=== PATIENT | female | born 1950 | race Caucasian/White ===

== ENCOUNTER → 2018-01-02 10:50 | Outpatient (CLI) | payer MEDICARE, OTHER, SELFPAY ==
[2018-01-02 12:27] LABS: Hematocrit 43.3 % (37-47); Hemoglobin 13.9 g/dl (12.0-15.0); Mean Corp Hgb Conc 32.1 g/gl (32-36); Mean Corpuscular Hgb 29.3 pg (27.0-32.0); Mean Corpuscular Volume 91.2 fL (81-99); Mean Platelet Vol. 11.1 fl (6.2-12.0); Platelet Count 313 K/mm3 (150-450); RBC Distribution Width CV 14.2 % (11.6-14.6); Red Blood Count 4.75 M/mm3 (4.2-5.4); White Blood Count 6.3 K/mm3 (4.4-11.0)
[2018-01-02 12:33] LABS: Scan Indicated on CBC? Y/N NO
[2018-01-02 12:39] LABS: Vitamin D,25 Hydroxy 33.4 ng/mL (29.95-100.01)
[2018-01-02 13:02] LABS: AST(SGOT) 16 U/L (15-37); Alanine Aminotransfer ALT/SGPT 25 U/L (13-56); Albumin, Serum 3.6 g/dL (3.2-5.0); Alkaline Phosphatase 148 U/L (45-117); Anion Gap 6 (5-15); BUN 15 mg/dL (7-18); BUN/Creat Ratio 17.3 RATIO (10-20); Calcium,Total 8.8 mg/dL (8.5-10.1); Chloride 105 mmol/L (98-107); Cholesterol 273 mg/dL (200); Creatinine, Serum 0.87 mg/dL (0.55-1.02); EST Glomerular Filtration Rate 69 mL/min (>60); Est Glom Filt Rate - Afr Amer 83 mL/min (>60); Globulin 3.6 g/dL (2.2-4.2); Glucose 89 mg/dL (74-106); High Density Lipoprotein 39 mg/dL; Protein, Total 7.2 g/dL (6.4-8.2); Sodium Level 141 mmol/L (136-145); Thyroid Stim Hormone (TSH) 2.55 uIU/mL (0.358-3.74); Triglycerides 266 mg/dL; Very Low Density Lipoprotein 53 mg/dL (5-40)
== END ==
PROVIDERS: Family Provider Family Medicine; PCP Family Medicine; Visit Provider Family Medicine
DX: E55.9 Vitamin D deficiency, unspecified (principal); Z13.220 Encounter for screening for lipoid disorders
CPT/HCPCS: 36415; 80053; 80061; 82306; 84443; 85027

== ENCOUNTER → 2018-01-26 12:30 | Outpatient (CLI) | payer MEDICARE, OTHER, SELFPAY ==
--- NOTE | 2018-01-26 12:33 | BI_ITS ---
MAMMOGRAPHY - BILATERAL SCREENING REASON FOR EXAM: Female, 68 years old. Routine annual screening examination. PERTINENT HISTORY: Non-contributory. TECHNIQUE: Digital bilateral breast clint (3D mammographic acquisition) in the CC and MLO projections. 2-D mediolateral oblique (MLO) and craniocaudad (CC) views of both breasts were obtained. CAD: Full Field Digital Mammography with Computer Added Detection was performed. COMPARISON: Comparison is made with prior abdomen examination dated May 04, 2015. FINDINGS: Breast Composition: There are scattered areas of fibroglandular density. There are no dominant masses or suspicious calcifications. Stable benign-appearing bilateral axillary lymph nodes. No other significant abnormalities are identified. There has been no significant change since the prior study. BI/SCREENING MAMM (CAD), BILAT IMPRESSION: Stable bilateral screening mammogram. Yearly follow-up mammogram recommended. (A) ASSESSMENT CATEGORY: BIRADS Category 2: Benign. A letter regarding these results will be sent to the patient by the facility within 30 days. Approximately 10% of breast cancers are not detected by mammography. A normal mammogram should not delay biopsy of a clinically suspicious abnormality. [id number] Electronically Signed: Eulalio Rodríguez MD at 14:18 EDT Tel [phone], Service support ,
== END ==
PROVIDERS: Family Provider Family Medicine; PCP Family Medicine; Visit Provider Family Medicine
DX: Z00.00 Encounter for general adult medical examination without abnormal findings (principal); Z12.31 Encounter for screening mammogram for malignant neoplasm of breast
CPT/HCPCS: 77063; 77067

== ENCOUNTER 2020-08-29 08:44 | Day surgery (SDC) | payer MEDICARE, OTHER, SELFPAY ==
[2020-08-14 12:50] VITALS: BMI 30.9
[2020-08-29 09:19] VITALS: BP 136/76; PULSE 82; RESP 16; TEMP 36.3; O2SAT 97; BMI 32.1
[2020-08-29] MEDS: Lactated Ringers 1,000 ML 100 ML IV (09:31)
--- NOTE | 2020-08-29 10:23 | SUR.PREOP ---
tap water enema given x2 per dr hernández request. pt continues with cloudy water with brown flecks in her stool.
--- NOTE | 2020-08-29 10:25 | HP.PCM_ITS ---
Problem List (1) Screening for malignant neoplasm of intestine Status: Acute History and Physical Date of Admission: 08/29/20 Intake Visit Reasons: Gall Bladder Issues Material Distributor Required: No Is patient in pain?: No Allergies morphine Allergy (Unknown, Verified 08/14/20 12:51) unknown pregabalin [From Lyrica] Allergy (Unknown, Verified 08/14/20 12:51) unknown acetaminophen [From Percocet] Adverse Reaction (Verified 01/24/17 20:37) Nausea/Vom/Diarrhea oxycodone [From Percocet] Adverse Reaction (Verified 01/24/17 20:37) Nausea/Vom/Diarrhea propoxyphene [From Darvon] Adverse Reaction (Verified 01/24/17 20:37) Unknown Medications Amitriptyline HCl 10 mg PO BID 01/24/17 [History Confirmed 08/14/20] Cholecalciferol (Vitamin D3) [Vitamin D3] 2,000 unit PO DAILY 01/24/17 [History Confirmed 08/14/20] Tramadol HCl [Ultram] 50 mg PO QHS 01/24/17 [History Confirmed 01/24/17] duloxetine 60 mg capsule,delayed release 60 mg PO DAILY cap 08/14/20 [History Confirmed 08/14/20] pravastatin 40 mg tablet 40 mg PO DAILY tablet 08/14/20 [History Confirmed 08/14/20] PFS Medical History Arthritis (Acute) History of back problems (Acute) GERD (gastroesophageal reflux disease) (Acute) Fibromyalgia (Acute) RUQ abdominal pain (Acute) Epigastric pain (Acute) Osteoarthritis (Acute) Meniere disease (Acute) Hx of squamous cell carcinoma (Acute) Numbness and tingling (Acute) Surgical History Hx of colonoscopy (Acute) Hx of total knee replacement (Acute) History of mandibular surgery (Acute) Hx of basal cell carcinoma excision (Acute) Hx of bilateral cataract extraction (Acute) Family History Sister Uterine cancer Diabetes Arthritis Social History (Updated 08/14/20 @ 13:[address] Brant Graves MD) Smoking Status: Never smoker second hand exposure: No alcohol intake: never substance use type: does not use caffeine: Yes what type of physical activity do you participate in: none frequency: does not exercise HPI HPI HPI: YVON MCKEON, is a 70 F who presents to the office today for surgical consultation regarding epigastric pain with radiation to her right upper quad rant. She is referred by and a written copy my surgical consult recommendations will be returned to her. The patient over the past several months has been having episodes of epigastric right upper quadrant pain. To help evaluate this on June 16, 2020 at [facility] she had a gallbladder ultrasound. This showed numerous gallstones. There was felt to be possibly a lesion in the liver. So subsequently July 03 she had an MRI. This showed focal fatty sparing. Diffuse fatty infiltration of the liver. Cholelithiasis. As of May her white blood cell count was 6.8 with a hemoglobin 14.8 hematocrit 44.1 platelet count 275,000 with a normal differential. Her BUN was 13 creatinine 0.9. Liver function tests were normal with a albumin of 3.7 and total bilirubin 0.4 and ALT of 52. She has had some nausea with the episodes of pain. There is been no particular food intolerance. No jaundice. No history of peptic ulcer disease. Her most recent colonoscopy was 10 years ago. She states she is due for further screening. No history of DVT. She states that she did not have exposure to COVID-19. HPI HPI HPI: YVON MCKEON, is a 70 F who presents to the office today for ROS General General: No weight change, appetite, fatigue, colon cancer, breast cancer or weakness HEENT HEENT: Yes eye surgery; no difficulty swallowing, eye injury, swollen glands or hoarseness Endo Endocrine: No thyroid disease, diabetes mellitus, thyroid cancer, Hair loss, heat intolerance or cold intolerance Skin Skin: No rash or changing moles Musc Musculoskeletal: Yes back problems and arthritis; no rheumatoid arthritis, gout or joint pain Cardio Cardiovascular: No murmur, pacemaker, heart disease, atrial fibrillation, high blood pressure, heart attack, heart stent, palpitations, shortness of breat with exertion or chest pain Psych Psychiatric: No depression, anxiety or hearing voices Resp Respiratory: No shortness of breath, No sleep apnea, No cough, No COPD, No asthma, No emphysema, No wheezing Gastro Gastrointestinal: Yes abdominal pain, No nausea or vomiting, No diarrhea, No constipation, No blood in stool, Yes acid reflux, No hemorrhoids, No ulcers, Yes gallbladder problem, No black,tarry stools Braxton Hematologic: No blood thinners, No blood disorders, No bleeding, No anemia, No blood clots Neuro Neurologic: Yes numbness, Yes tingling, No weakness Exam Const General: cooperative, healthy appearing, comfortable, no acute distress Nutritional Appearance: overweight Orientation: alert, awake [facility] Head: normal to inspection Eyes General: appearance normal, both eyes and all related structures Chest Other: Minimal discomfort to percussion of the back Resp Effort & Inspection: normal respiratory effort Auscultation: clear to auscultation bilaterally Cardio Rate: regular rate Rhythm: regular rhythm Heart Sounds: no murmurs GI Palpation: soft, no hepatosplenomegaly Other: Well-healed transverse infraumbilical incision from tubal ligation Musc Cervical Spine: normal cervical lordosis Skin General: no rashes or lesions noted Neuro Cognition: normal cognition Extrem General: no calf tenderness Psych Affect: normal affect Assessment & Plan Problems 1. Screening for malignant neoplasm of intestine Z12.10 2. Calculus of gallbladder with chronic cholecystitis without obstruction K80.10 Plan 70-year-old female with episodes of epigastric red quadrant pain with radiation to back consistent with chronic cholecystitis cholelithiasis. I have discussed with her technique benefit risk complication alternatives of a laparoscopic cholecystectomy with selective cholangiography. She has had an opportunity to ask no questions answered and we will schedule procedure at her discretion. She is due for screening colonoscopy. It would seem reasonable to pursue this prior to the cholecystectomy in case of positive finding were identified. I propose for her a colonoscopy with possible biopsy or polypectomy as indicated. She also is aware of technique benefit risk complications alternatives. We will schedule and expedite her care. I appreciate the opportunity of assisting with her surgical management Copy: Dr. Nick Graves M.D., F.A.C.S. Coding Level of Care Code 74075 Diagnoses Screening for malignant neoplasm of intestine Z12.10 Calculus of gallbladder with chronic cholecystitis without obstruction K80.10 ??Cholelithiasis location: gallbladder ??Biliary obstruction: without biliary obstruction I have re-examined the patient. There are no clinical changes since date of exam.
[2020-08-29 10:45] VITALS: BP 119/65; BP 136/76; PULSE 72; RESP 16; TEMP 36.1; O2SAT 93
[2020-08-29 10:50] VITALS: BP 121/70; BP 136/76; PULSE 70; RESP 16; O2SAT 93
--- NOTE | 2020-08-29 10:50 | OP.COLON_ITS ---
Patient Name: Verna Mari Procedure Date: 08/29/2020 10:24 AM Date of : 1950 Age: 70 Procedure: Colonoscopy Indications: Screening for colorectal malignant neoplasm Providers: Brant Graves MD Referring MD: Angela Romero Md Medicines: See the Anesthesia note for documentation of the administered medications Patient Profile: Last Colonoscopy: June 2009. Complications: No immediate complications. Procedure: Pre-Anesthesia Assessment: - Prior to the procedure, a History and Physical was performed, and patient medications and allergies were reviewed. The patient's tolerance of previous anesthesia was also reviewed. The risks and benefits of the procedure and the sedation options and risks were discussed with the patient. All questions were answered, and informed consent was obtained. Prior Anticoagulants: The patient has taken no previous anticoagulant or antiplatelet agents. ASA Grade Assessment: II - A patient with mild systemic disease. After reviewing the risks and benefits, the patient was deemed in satisfactory condition to undergo the procedure. After I obtained informed consent, the scope was passed under direct vision. Throughout the procedure, the patient's blood pressure, pulse, and oxygen saturations were monitored continuously. The Colonoscope was introduced through the anus and advanced to the splenic flexure. The colonoscopy was performed with difficulty due to unsatisfactory bowel prep. The patient tolerated the procedure well. The quality of the bowel preparation was unsatisfactory. Scope In: 10:36:31 AM Scope Out: 10:40:25 AM Total Procedure Duration Time 0 hours 3 minutes 54 seconds Findings: A large amount of stool was found in the entire colon, precluding visualization. Impression: - Preparation of the colon was unsatisfactory. - Stool in the entire examined colon. - No specimens collected. Recommendation: - Discharge patient to home. - Resume previous diet. - Continue present medications. - Repeat colonoscopy in 2 days for screening purposes. - Telephone my office to schedule appointment in 1 day. Procedure Code(s): --- Professional --- 83117, Sigmoidoscopy, flexible; diagnostic, including collection of specimen(s) by brushing or washing, when performed (separate procedure) Diagnosis Code(s): --- Professional --- Z12.11, Encounter for screening for malignant neoplasm of colon CPT copyright 2017 [employer]. All rights reserved. The codes documented in this report are preliminary and upon helper maintenance cleaning review may be revised to meet current compliance requirements. Brant Graves MD 08/29/2020 10:50:44 AM This report has been signed electronically. Number of Addenda: 0 Note Initiated On: 08/29/2020 10:24 AM
--- NOTE | 2020-08-29 10:51 | OP.CCLET_ITS ---
08/29/2020 Angela Romero Md Re : Colonoscopy procedure for Verna Mari Latoshar Nick This procedure was performed on Saturday, August 29, 2020. My impressions and recommendations are as follows: Impressions : - Preparation of the colon was unsatisfactory. - Stool in the entire examined colon. - No specimens collected. Recommendations : - Discharge patient to home. - Resume previous diet. - Continue present medications. - Repeat colonoscopy in 2 days for screening purposes. - Telephone my office to schedule appointment in 1 day. My findings are described in the full procedure note, which is enclosed. If I can be of further assistance, please feel free to contact me at Doctor phone number(s): Work: . Sincerely, Brant Graves MD 08/29/2020 10:50:44 AM This report has been signed electronically.
[2020-08-29 10:55] VITALS: BP 125/73; BP 136/76; PULSE 71; RESP 16; O2SAT 93
[2020-08-29 11:00] VITALS: BP 129/75; BP 136/76; PULSE 70; RESP 16; TEMP 36.3; O2SAT 96
[2020-08-29 11:25] VITALS: BP 136/76
== END 2020-08-29 11:30 | disposition home or self-care (01) ==
LOC: EN 08:45 → AC 08:46
PROVIDERS: PCP Student in an Organized Health Care Education/Training Program; Referring Provider Student in an Organized Health Care Education/Training Program; Visit Provider Surgery
PROC: 0DJD8ZZ Inspection of Lower Intestinal Tract, Via Natural or Artificial Opening Endoscopic (ICD-10-PCS; CPT 45378; principal; 2020-08-29 10:10)
DX: Z12.11 Encounter for screening for malignant neoplasm of colon (principal); R10.13 Epigastric pain; M79.7 Fibromyalgia; M19.90 Unspecified osteoarthritis, unspecified site; Z79.899 Other long term (current) drug therapy
CPT/HCPCS: 45378; 87426; C9803; J7120; J2405

== ENCOUNTER 2020-08-31 09:45 | Day surgery (SDC) | payer MEDICARE, OTHER, SELFPAY ==
[2020-08-31] VITALS (7 sets, daily range): BP systolic 123–143; BP diastolic 70–95; PULSE 66–80; RESP 16–18; TEMP 35.8–36.1; O2SAT 94–100; BMI 31.7
[2020-08-31] MEDS: Lactated Ringers 1,000 ML 100 ML IV (10:23)
--- NOTE | 2020-08-31 10:43 | PCM.HP.BLA ---
Problem List (1) Screening for malignant neoplasm of intestine Status: Acute History and Physical Date of Admission: 08/31/20 Problem List (1) Screening for malignant neoplasm of intestine Status: Acute History and Physical Date of Admission: 08/29/20 Intake Visit Reasons: Gall Bladder Issues Suction Roller Required: No Is patient in pain?: No Allergies morphine Allergy (Unknown, Verified 08/14/20 12:51) unknown pregabalin [From Lyrica] Allergy (Unknown, Verified 08/14/20 12:51) unknown acetaminophen [From Percocet] Adverse Reaction (Verified 01/24/17 20:37) Nausea/Vom/Diarrhea oxycodone [From Percocet] Adverse Reaction (Verified 01/24/17 20:37) Nausea/Vom/Diarrhea propoxyphene [From Darvon] Adverse Reaction (Verified 01/24/17 20:37) Unknown Medications Amitriptyline HCl 10 mg PO BID 01/24/17 [History Confirmed 08/14/20] Cholecalciferol (Vitamin D3) [Vitamin D3] 2,000 unit PO DAILY 01/24/17 [History Confirmed 08/14/20] Tramadol HCl [Ultram] 50 mg PO QHS 01/24/17 [History Confirmed 01/24/17] duloxetine 60 mg capsule,delayed release 60 mg PO DAILY cap 08/14/20 [History Confirmed 08/14/20] pravastatin 40 mg tablet 40 mg PO DAILY tablet 08/14/20 [History Confirmed 08/14/20] PFSH Medical History Arthritis (Acute) History of back problems (Acute) GERD (gastroesophageal reflux disease) (Acute) Fibromyalgia (Acute) RUQ abdominal pain (Acute) Epigastric pain (Acute) Osteoarthritis (Acute) Meniere disease (Acute) Hx of squamous cell carcinoma (Acute) Numbness and tingling (Acute) Surgical History Hx of colonoscopy (Acute) Hx of total knee replacement (Acute) History of mandibular surgery (Acute) Hx of basal cell carcinoma excision (Acute) Hx of bilateral cataract extraction (Acute) Family History Sister Uterine cancer Diabetes Arthritis Social History (Updated 08/14/20 @ 13:[address] Brant Graves MD) Smoking Status: Never smoker second hand exposure: No alcohol intake: never substance use type: does not use caffeine: Yes what type of physical activity do you participate in: none frequency: does not exercise HPI HPI HPI: YVON MCKEON, is a 70 F who presents to the office today for surgical consultation regarding epigastric pain with radiation to her right upper quadrant. She is referred by and a written copy my surgical consult recommendations will be returned to her. The patient over the past several months has been having episodes of epigastric right upper quadrant pain. To help evaluate this on June 16, 2020 at [facility] she had a gallbladder ultrasound. This showed numerous gallstones. There was felt to be possibly a lesion in the liver. So subsequently July 03 she had an MRI. This showed focal fatty sparing. Diffuse fatty infiltration of the liver. Cholelithiasis. As of May her white blood cell count was 6.8 with a hemoglobin 14.8 hematocrit 44.1 platelet count 275,000 with a normal differential. Her BUN was 13 creatinine 0.9. Liver function tests were normal with a albumin of 3.7 and total bilirubin 0.4 and ALT of 52. She has had some nausea with the episodes of pain. There is been no particular food intolerance. No jaundice. No history of peptic ulcer disease. Her most recent colonoscopy was 10 years ago. She states she is due for further screening. No history of DVT. She states that she did not have exposure to COVID-19. HPI HPI HPI: YVON MCKEON, is a 70 F who presents to the office today for ROS General General: No weight change, appetite, fatigue, colon cancer, breast cancer or weakness HEENT HEENT: Yes eye surgery; no difficulty swallowing, eye injury, swollen glands or hoarseness Endo Endocrine: No thyroid disease, diabetes mellitus, thyroid cancer, Hair loss, heat intolerance or cold intolerance Skin Skin: No rash or changing moles Musc Musculoskeletal: Yes back problems and arthritis; no rheumatoid arthritis, gout or joint pain Cardio Cardiovascular: No murmur, pacemaker, heart disease, atrial fibrillation, high blood pressure, heart attack, heart stent, palpitations, shortness of breat with exertion or chest pain Psych Psychiatric: No depression, anxiety or hearing voices Resp Respiratory: No shortness of breath, No sleep apnea, No cough, No COPD, No asthma, No emphysema, No wheezing Gastro Gastrointestinal: Yes abdominal pain, No nausea or vomiting, No diarrhea, No constipation, No blood in stool, Yes acid reflux, No hemorrhoids, No ulcers, Yes gallbladder problem, No black,tarry stools Braxton Hematologic: No blood thinners, No blood disorders, No bleeding, No anemia, No blood clots Neuro Neurologic: Yes numbness, Yes tingling, No weakness Exam Const General: cooperative, healthy appearing, comfortable, no acute distress Nutritional Appearance: overweight Orientation: alert, awake [facility] Head: normal to inspection Eyes General: appearance normal, both eyes and all related structures Chest Other: Minimal discomfort to percussion of the back Resp Effort & Inspection: normal respiratory effort Auscultation: clear to auscultation bilaterally Cardio Rate: regular rate Rhythm: regular rhythm Heart Sounds: no murmurs GI Palpation: soft, no hepatosplenomegaly Other: Well-healed transverse infraumbilical incision from tubal ligation Musc Cervical Spine: normal cervical lordosis Skin General: no rashes or lesions noted Neuro Cognition: normal cognition Extrem General: no calf tenderness Psych Affect: normal affect Assessment & Plan Problems 1. Screening for malignant neoplasm of intestine Z12.10 2. Calculus of gallbladder with chronic cholecystitis without obstruction K80.10 Plan 70-year-old female with episodes of epigastric red quadrant pain with radiation to back consistent with chronic cholecystitis cholelithiasis. I have discussed with her technique benefit risk complication alternatives of a laparoscopic cholecystectomy with selective cholangiography. She has had an opportunity to ask no questions answered and we will schedule procedure at her discretion. She is due for screening colonoscopy. It would seem reasonable to pursue this prior to the cholecystectomy in case of positive finding were identified. I propose for her a colonoscopy with possible biopsy or polypectomy as indicated. She also is aware of technique benefit risk complications alternatives. We will schedule and expedite her care. I appreciate the opportunity of assisting with her surgical management Copy: Dr. Nick Graves M.D., F.A.C.S. Coding Level of Care Code 41156 Diagnoses Screening for malignant neoplasm of intestine Z12.10 Calculus of gallbladder with chronic cholecystitis without obstruction K80.10 ??Cholelithiasis location: gallbladder ??Biliary obstruction: without biliary obstruction I have re-examined the patient. There are no clinical changes since date of exam. She returns today. She is redone her bowel prep. It was in adequate 2 days ago. We will reattempt a colonoscopy with possible biopsy or polypectomy for her. She has had an opportunity to ask and have questions answered she is comfortable with that and would like to proceed as noted. Brant Graves M.D., F.A.C.S. Procedure Criteria Procedure Type: Elective COVID Risk Discussion: The surgeon/proceduralist and patient have discussed in detail the risk of exposure to and/or potential harm posed by the COVID-19 virus with having a surgery/procedure at this time versus the risk of delaying the surgery/procedure. It is not possible to know either the risk of delaying the surgery or procedure or chance of getting an infection with perfect accuracy, but a joint decision was made between the patient and the surgeon/proceduralist to proceed at this time with the scheduled surgery/procedure as indicated on the consent form.
--- NOTE | 2020-08-31 11:00 | COLBX_PTH ---
PATIENT: YVON MCKEON LOC: EN U#:[id number] AGE/SX: 70/F ROOM: RE08/31/[address]: Dr. Brant Graves MD : 1950 BED: DIS: 08/31/2020 SPEC #: [id number] RECD: 08/31/20 11:38 STATUS: LETY CURRYJill #: [id number] AURELIO: 08/31/20 11:[address]: Brant Graves DEPT: SURGICAL PATHOLOGY RECD BY: Siomara Parikh ENTERED: 08/31/20 12:19 SP TYPE: COLON BX RAVI DR: Dr. Angela Romero MD Tissues: A - Transverse colon B - Rectum, NOS Procedures: Surgery Specimen Level IV HEADER OPERATION: Colonoscopy (MAC) PRE-OP DIAGNOSIS: Screening TISSUE SUBMITTED: A - Mid transverse polyp, B - Proximal rectum polyp MICROSCOPIC DIAGNOSIS A. Mid transverse colon polyp, biopsy: Fragments of tubular adenoma. B. Proximal rectal polyp, biopsy: Polypoid fragment of benign colonic mucosa. See comment. AM:naseem 09/01/2020 COMMENT B. Neither hyperplastic nor adenomatous change is identified. MICROSCOPIC DESCRIPTION Slides are reviewed. GROSS DESCRIPTION A - Received in fixative is one container labeled with the patient's name and designated mid transverse colon polyp. The specimen consists of two irregular fragments of light flores soft tissue that in aggregate measure 0.8 x 0.5 x 0.2 cm. The specimen is totally submitted in one cassette. B - Received in fixative is one container labeled with the patient's name and designated proximal rectum polyp. The specimen consists of one irregular fragment of light flores soft tissue that measures 0.6 x 0.2 x 0.1 cm. The specimen is totally submitted in one cassette. / AM:naseem 08/31/20 TC:5 CPT: 80012 x2
--- NOTE | 2020-08-31 11:30 | OP.COLON_ITS ---
Patient Name: Verna Mari Procedure Date: 08/31/2020 10:38 AM Date of : 1950 Age: 70 Procedure: Colonoscopy Indications: Screening for colorectal malignant neoplasm Providers: Brant Graves MD Referring MD: Angela Romero Md Medicines: See the Anesthesia note for documentation of the administered medications Patient Profile: Last Colonoscopy: 10 years ago. Complications: No immediate complications. Procedure: Pre-Anesthesia Assessment: - Prior to the procedure, a History and Physical was performed, and patient medications and allergies were reviewed. The patient's tolerance of previous anesthesia was also reviewed. The risks and benefits of the procedure and the sedation options and risks were discussed with the patient. All questions were answered, and informed consent was obtained. Prior Anticoagulants: The patient has taken no previous anticoagulant or antiplatelet agents. ASA Grade Assessment: II - A patient with mild systemic disease. After reviewing the risks and benefits, the patient was deemed in satisfactory condition to undergo the procedure. After I obtained informed consent, the scope was passed under direct vision. Throughout the procedure, the patient's blood pressure, pulse, and oxygen saturations were monitored continuously. The Colonoscope was introduced through the anus and advanced to the cecum, identified by appendiceal orifice and ileocecal valve. The colonoscopy was performed with moderate difficulty due to a tortuous colon. Successful completion of the procedure was aided by applying abdominal pressure. The patient tolerated the procedure well. The quality of the bowel preparation was good. The ileocecal valve and the appendiceal orifice were photographed. Scope In: 10:48:54 AM Scope Withdrawal Time 0 hours 20 minutes 30 seconds Scope Out: 11:22:40 AM Total Procedure Duration Time 0 hours 33 minutes 46 seconds Findings: Hemorrhoids were found on perianal exam. A 4 mm polyp was found in the proximal transverse colon. The polyp was sessile. The polyp was removed with a cold biopsy forceps. Resection and retrieval were complete. A 4 mm polyp was found in the rectum. The polyp was sessile. The polyp was removed with a cold biopsy forceps. Resection and retrieval were complete. The colon (entire examined portion) revealed moderately excessive looping. Advancing the scope required changing the patient to a supine position and using manual pressure. Impression: - Hemorrhoids found on perianal exam. - One 4 mm polyp in the proximal transverse colon, removed with a cold biopsy forceps. Resected and retrieved. - One 4 mm polyp in the rectum, removed with a cold biopsy forceps. Resected and retrieved. - There was significant looping of the colon. Small area in mid transverse colon which could not be identified after irrigation, likely small amount of stool, image 5 Recommendation: - Discharge patient to home. - Resume previous diet. - Continue present medications. - Repeat colonoscopy in 5 years for surveillance based on pathology results. - Telephone my office for pathology results in 1 week. Procedure Code(s): --- Professional --- 69701, Colonoscopy, flexible; with biopsy, single or multiple Diagnosis Code(s): --- Professional --- Z12.11, Encounter for screening for malignant neoplasm of colon K64.9, Unspecified hemorrhoids D12.3, Benign neoplasm of transverse colon (hepatic flexure or splenic flexure) K62.1, Rectal polyp CPT copyright 2017 [employer]. All rights reserved. The codes documented in this report are preliminary and upon office supervisor review may be revised to meet current compliance requirements. Brant Graves MD 08/31/2020 11:30:20 AM This report has been signed electronically. Number of Addenda: 0 Note Initiated On: 08/31/2020 10:38 AM
--- NOTE | 2020-08-31 11:31 | OP.CCLET_ITS ---
08/31/2020 Angela Romero Md Re : Colonoscopy procedure for Verna Mari Latoshar Nick This procedure was performed on August. My impressions and recommendations are as follows: Impressions : - Hemorrhoids found on perianal exam. - One 4 mm polyp in the proximal transverse colon, removed with a cold biopsy forceps. Resected and retrieved. - One 4 mm polyp in the rectum, removed with a cold biopsy forceps. Resected and retrieved. - There was significant looping of the colon. Small area in mid transverse colon which could not be identified after irrigation, likely small amount of stool, image 5 Recommendations : - Discharge patient to home. - Resume previous diet. - Continue present medications. - Repeat colonoscopy in 5 years for surveillance based on pathology results. - Telephone my office for pathology results in 1 week. My findings are described in the full procedure note, which is enclosed. If I can be of further assistance, please feel free to contact me at Doctor phone number(s): Work: . Sincerely, Brant Graves MD 08/31/2020 11:30:20 AM This report has been signed electronically.
== END 2020-08-31 12:17 | disposition home or self-care (01) ==
LOC: EN 09:46 → AC 09:47
PROVIDERS: PCP Student in an Organized Health Care Education/Training Program; Referring Provider Student in an Organized Health Care Education/Training Program; Visit Provider Surgery
PROC: 0DJD8ZZ Inspection of Lower Intestinal Tract, Via Natural or Artificial Opening Endoscopic (ICD-10-PCS; CPT 45378; principal; 2020-08-31 10:55)
DX: Z12.11 Encounter for screening for malignant neoplasm of colon (principal); D12.3 Benign neoplasm of transverse colon; K62.1 Rectal polyp; K64.9 Unspecified hemorrhoids; K80.10 Calculus of gallbladder with chronic cholecystitis without obstruction; M19.90 Unspecified osteoarthritis, unspecified site; K21.9 Gastro-esophageal reflux disease without esophagitis; M79.7 Fibromyalgia; E78.00 Pure hypercholesterolemia, unspecified; H81.09 Meniere's disease, unspecified ear; Z78.0 Asymptomatic menopausal state; Z85.828 Personal history of other malignant neoplasm of skin; Z79.899 Other long term (current) drug therapy
CPT/HCPCS: 45380; 88305; J7120

== ENCOUNTER 2020-11-09 09:58 | Day surgery (SDC) | payer MEDICARE, OTHER, SELFPAY ==
[2020-08-31 10:12] VITALS: BMI 31.7
--- NOTE | 2020-11-06 08:57 | EKG12_ITS ---
Test Reason : PRE OP Blood Pressure : / mmHG Vent. Rate : 078 BPM Atrial Rate : 078 BPM P-R Int : 146 ms QRS Dur : 082 ms QT Int : 370 ms P-R-T Axes : 056 037 059 degrees QTc Int : 421 ms Normal sinus rhythm Normal ECG Confirmed by LYNDA MCLEAN, HUGH ([id number]), mapping editor MARY GENAO ([id number]) on 11/07/2020 9:33:11 AM Referred By: GARRETT Confirmed By:HUGH HOWELL MD
[2020-11-06 10:00] LABS: Hematocrit 44.5 % (37-47); Hemoglobin 14.5 g/dL (12.0-15.0); Mean Corp Hgb Conc 32.6 g/dL (32-36); Mean Corpuscular Hgb 29.3 pg (27.0-32.0); Mean Corpuscular Volume 89.9 fL (81-99); Mean Platelet Vol. 10.9 fl (6.2-12.0); Platelet Count 282 K/mm3 (150-450); RBC Distribution Width CV 12.9 % (11.6-14.6); RBC Distribution Width SD 42.5 fl (35.1-43.9); Red Blood Count 4.95 M/mm3 (4.2-5.4); White Blood Count 6.1 K/mm3 (4.4-11.0)
[2020-11-06 10:46] LABS: Anion Gap 7 (5-15); BUN 12 mg/dL (7-18); BUN/Creat Ratio 13.7 RATIO (10-20); Calcium,Total 8.9 mg/dL (8.5-10.1); Chloride 106 mmol/L (98-107); Creatinine, Serum 0.87 mg/dL (0.55-1.02); EST Glomerular Filtration Rate 68 mL/min (>60); Est Glom Filt Rate - Afr Amer 82 mL/min (>60); Glucose 101 mg/dL (74-106); Potassium 3.9 mmol/L (3.5-5.1); Sodium Level 141 mmol/L (136-145)
[2020-11-09] VITALS (11 sets, daily range): BP systolic 114–151; BP diastolic 60–91; PULSE 65–82; RESP 16–18; TEMP 36.3–36.8; O2SAT 85–100; BMI 32.5
[2020-11-09] MEDS: Lactated Ringers 1,000 ML 100 ML IV ×2 (10:39→13:50)
--- NOTE | 2020-11-09 10:57 | HP.PCM_ITS ---
History and Physical [facility] [id number] [facility] [address] History and Odzkipru93/15/21 1043#: [id number]:[id number]:YVON MCKEON #:[id number]: [id number]: Brant Graves MDPCP:Dr. 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[employer] Required: No Is patient in pain?: No Allergies morphine Allergy (Unknown, Verified 08/14/20 12:51) unknown pregabalin [From Lyrica] Allergy (Unknown, Verified 08/14/20 12:51) unknown acetaminophen [From Percocet] Adverse Reaction (Verified 01/24/17 20:37) Nausea/Vom/Diarrhea oxycodone [From Percocet] Adverse Reaction (Verified 01/24/17 20:37) Nausea/Vom/Diarrhea propoxyphene [From Darvon] Adverse Reaction (Verified 01/24/17 20:37) Unknown Medications Amitriptyline HCl 10 mg PO BID 01/24/17 [History Confirmed 08/14/20] Cholecalciferol (Vitamin D3) [Vitamin D3] 2,000 unit PO DAILY 01/24/17 [History Confirmed 08/14/20] Tramadol HCl [Ultram] 50 mg PO QHS 01/24/17 [History Confirmed 01/24/17] duloxetine 60 mg capsule,delayed release 60 mg PO DAILY cap 08/14/20 [History Confirmed 08/14/20] pravastatin 40 mg tablet 40 mg PO DAILY tablet 08/14/20 [History Confirmed 08/14/20] FOR[facility]LY [facility] Medical History Arthritis (Acute) History of back problems (Acute) GERD (gastroesophageal reflux disease) (Acute) Fibromyalgia (Acute) RUQ abdominal pain (Acute) Epigastric pain (Acute) Osteoarthritis (Acute) Meniere disease (Acute) Hx of squamous cell carcinoma (Acute) Numbness and tingling (Acute) Surgical History Hx of colonoscopy (Acute) Hx of total knee replacement (Acute) History of mandibular surgery (Acute) Hx of basal cell carcinoma excision (Acute) Hx of bilateral cataract extraction (Acute) Family History Sister Uterine cancer Diabetes Arthritis Social History (Updated 08/14/20 @ 13:[address] Brant Graves MD) Smoking Status: Never smoker second hand exposure: No alcohol intake: never substance use type: does not use caffeine: Yes what type of physical activity do you participate in: none frequency: does not exercise HPI: Patient is a 70 y/o F I am following for epigastric pain. Patient presents for an update H&P for an elective cholecystectomy. Patient denies any recent hospitalizations or illnesses. Patient continues to note some epigastric pain with certain foods. She notes previous hysterectomy otherwise no other abdominal procedures. Patient denies previous CO, stroke or blood clots. She denies previous side effects or complications from anesthesia. She denies current chest pain, shortness of breath. Patient's previous history per Dr. Graves: YVON MCKEON, is a 70 F who presents to the office today for surgical consultation regarding epigastric pain with radiation to her right upper quadrant. She is referred by and a written copy my surgical consult recommendations will be returned to her. The patient over the past several months has been having episodes of epigastric right upper quadrant pain. To help evaluate this on June 16, 2020 at [facility] she had a gallbladder ultrasound. This showed numerous gallstones. There was felt to be possibly a lesion in the liver. So subsequently July 03 she had an MRI. This showed focal fatty sparing. Diffuse fatty infiltration of the liver. Cholelithiasis. As of May her white blood cell count was 6.8 with a hemoglobin 14.8 hematocrit 44.1 platelet count 275,000 with a normal differential. Her BUN was 13 creatinine 0.9. Liver function tests were normal with a albumin of 3.7 and total bilirubin 0.4 and ALT of 52. She has had some nausea with the episodes of pain. There is been no particular food intolerance. No jaundice. No history of peptic ulcer disease. Her most recent colonoscopy was 10 years ago. She states she is due for further screening. No history of DVT. She states that she did not have exposure to COVID-19. ROS General General: No weight change, appetite, fatigue, colon cancer, breast cancer or weakness HEENT HEENT: Yes eye surgery; no difficulty swallowing, eye injury, swollen glands or hoarseness Endo Endocrine: No thyroid disease, diabetes mellitus, thyroid cancer, Hair loss, heat intolerance or cold intolerance Skin Skin: No rash or changing moles [facility] Musculoskeletal: Yes back problems and arthritis; no rheumatoid arthritis, gout or joint pain Cardio Cardiovascular: No murmur, pacemaker, heart disease, atrial fibrillation, high blood pressure, heart attack, heart stent, palpitations, shortness of breat with exertion or chest pain Psych Psychiatric: No depression, anxiety or hearing voices Resp Respiratory: No shortness of breath, No sleep apnea, No cough, No COPD, No asthma, No emphysema, No wheezing Gastro Gastrointestinal: Yes abdominal pain, No nausea or vomiting, No diarrhea, No constipation, No blood in stool, Yes acid reflux, No hemorrhoids, No ulcers, Yes gallbladder problem, No black,tarry stools Braxton Hematologic: No blood thinners, No blood disorders, No bleeding, No anemia, No blood clots Neuro Neurologic: Yes numbness, Yes tingling, No weakness Exam Const General: cooperative, healthy appearing, comfortable, no acute distress Nutritional Appearance: overweight Orientation: alert, awake [facility] Head: normal to inspection Eyes General: appearance normal, both eyes and all related structures Chest Other: Minimal discomfort to percussion of the back Resp Effort & Inspection: normal respiratory effort Auscultation: clear to auscultation bilaterally Cardio Rate: regular rate Rhythm: regular rhythm Heart Sounds: no murmurs GI Palpation: soft, no hepatosplenomegaly Other: Well-healed transverse infraumbilical incision from tubal ligation [facility] Cervical Spine: normal cervical lordosis Skin General: no rashes or lesions noted Neuro Cognition: normal cognition Extrem General: no calf tenderness Psych Affect: normal affect Assessment & Plan Assessment/Plan (1) Cholelithiasis with chronic cholecystitis: QUALIFIERS: Biliary obstruction: without biliary obstruction Cholelithiasis location: gallbladder Qualified Code(s): K80.10 - Calculus of gallbladder with chronic cholecystitis without obstruction PLAN: Dr. Graves will plan to perform a laparoscopic cholecystectomy with intraoperative cholangiogram. Procedure details, risks and benefits have been reviewed. Patient verbally understands and agrees with the plan. Patient has had the opportunity to ask and have questions answered. Charges/Coding Visit Charges Office Visits / Consults: [id number] OP Consult L1 (No charge; update H&P)
--- NOTE | 2020-11-09 12:15 | GALL_PTH ---
PATIENT: YVON MCKEON [place] [facility] [place][id number] AGE/SX: 70/F ROOM: RE11/09/[address]: Dr. Brant Graves MD : 1950 BED: DIS: 11/09/2020 SPEC #: [id number] RECD: 11/09/20 14:10 STATUS: LETY JORDEN #: [id number] AURELIO: 11/09/20 12:[address]: Brant Graves DEPT: SURGICAL PATHOLOGY RECD BY: Siomara Parikh ENTERED: 11/10/20 09:19 SP TYPE: AMILCAR RODRIGUES DR: Dr. Angela Romero MD Tissues: Gallbladder, NOS Procedures: Surgery Specimen Level III HEADER OPERATION: Laparoscopic cholecystectomy with IOC PRE-OP DIAGNOSIS: Cholelithiasis with chronic cholecystitis TISSUE SUBMITTED: Gallbladder MICROSCOPIC DIAGNOSIS Gallbladder, cholecystectomy: Chronic cholecystitis and cholelithiasis. SJ:naseem 11/13/2020 MICROSCOPIC DESCRIPTION Slides are reviewed. GROSS DESCRIPTION Received is one container labeled with the patient's name and designated gallbladder. The specimen consists of a gallbladder measuring 8.5 cm in length and up to 3 cm in diameter. The external surface is pink-flores, smooth and glistening for the most part. Focally it is granular, hemorrhagic and contains cautery artifact. The gallbladder contains green-yellow mucoid bile and multiple multifaceted brown stones measuring in aggregate 6 x 6.5 x 2 cm and 0.5 to 1 cm in greatest dimension. The mucosa is bile-stained and without any mass lesions. The gallbladder wall measures up to 0.2 cm in thickness. Otolaryngology Teacher sections from the gallbladder and the cystic duct are submitted in one cassette. / SJ:naseem 11/10/20 TC:3 [facility]: [id number]
--- NOTE | 2020-11-09 12:15 | RAD_ITS ---
CLINICAL HISTORY: Female, 70 years old. PROCEDURE: CHOLANGIOGRAM - CONSENT: SEDATION: FLUOROSCOPY TIME (if supplied): ( ) minutes/seconds Study was done in the OR. The cystic duct was injected with contrast, there is very good delineation of the common hepatic and common bile duct with no evidence of filling defects to suggest retained stones. No dilatation of the intrahepatic biliary system RAD/Cholangiogram/ O R,Initial IMPRESSION: Negative examination. Electronically Signed: Jemma Holbrook, at 14:06 EDT Tel , Service support ,
[2020-11-09] MEDS: Cefazolin 2 GM in 0.9% Normal Saline 100 ML IV (12:30)
--- NOTE | 2020-11-09 12:30 | EX.PCM.DISCH ---
Discharge Instructions Procedure General Surgery Diet Discharge Diet: Light diet - advance as tolerated (if you have questions about your diet instructions, please talk to you doctor.) Activity Discharge Activity: May Not Drive (for 3-5 days or while taking narcotic pain medicine.) May shower in (days): 1 Lifting Restrictions: 10 pounds Dressing / Incision Call your doctor if your incision/area has: Continuous Slow Oozing, Sudden Increased Bleeding, Increased Pain/ Swelling, Increased Redness and Foul Smelling Discharge Call your doctor if you observe: Fever of 101 or Higher Suture Line Care: Avoid Pulling/Pushing and Avoid Pinching/Bending Additional Dressing/Incision Instructions:: Change or remove dressing in 4 days. Leave steri-strips in place for 1 week. Follow Up Care Please Follow Up With: Brant Graves MD When: Call [phone] to make an appointment to be seen in about 10 days. Test Results: Test results from this visit will be discussed in further detail at your follow-up appointment, if applicable. Discharge Plan Admission Attending Provider: Brant Graves Primary Care Provider: Angela Romero Discharge Orders/Prescriptions Prescriptions: No Action duloxetine 60 mg capsule,delayed release(DR/EC) 60 mg PO QHS RF: 0 pravastatin 40 mg tablet 40 mg PO QHS RF: 0 tramadol [Ultram] 50 MG tablet 50 mg PO PRN PRN (Reason: Pain 1-10 Or Fever) RF: 0 amitriptyline 10 MG tablet 10 mg PO QHS RF: 0 cholecalciferol (vitamin D3) 1,000 UNIT capsule 2,000 unit PO QHS RF: 0
[2020-11-09] MEDS: Bupivacaine Mpf 0.5% 30 ML VIAL (12:48)
--- NOTE | 2020-11-09 13:38 | PCM.OPRPT ---
Problems Associated Problem List Diagnoses (1) Cholelithiasis with chronic cholecystitis: Report of Operation Date of Procedure: 11/09/20 Pre-Operative Diagnosis: Chronic cholecystitis cholelithiasis Post-Operative Diagnosis: Same Surgery/Procedure Performed:: Laparoscopic cholecystectomy with cholangiography Description of Surgical Findings:: Timeout and informed consent was obtained. 70-year-old female was taken to the operating placed on the table underwent general endotracheal intubation anesthesia. Ancef 2 g were given intravenously. The abdomen sterilely prepped draped. 0.5% Marcaine was used as a local anesthetic. Throughout the procedure a total of 30 cc was used. Local was instilled at the superior aspect of the umbilicus. A vertical incision was created holding sutures of 0 Vicryl placed varies needle inserted saline drop test performed the abdomen was insufflated with CO2 to a pressure of 10 mmHg pressure 10 mm trocar inserted 10 mm laparoscope inserted there is evidence of adhesions of omentum to the infraumbilical midline. The trocar did not have any involvement with this area. There is no evidence of any bowel involvement. 5 mm trochars were placed in the epigastric right upper quadrant right lateral upper quadrant area. The liver was noted to be quite yellow and fatty in appearance. The gallbladder was distracted blunt dissection was instituted the infundibulum until clearly the cystic duct cystic artery and critical view was achieved. Dissection was performed bluntly slightly further posterior aspect gallbladder to assure critical view was achieved. Hem-o-dianna clip was placed proximally and distally on the cystic artery prior to transecting it. Hemoclip was placed on the cystic duct and incision placement and cystic duct and the angiocatheter was inserted and a cholangiogram catheter inserted and secured with a Hemoclip. Fluoroscopically controlled cholangiograms were obtained there was some leakage at the catheter insertion site with cholangiogram was quite adequate demonstrating good distal flow and normal proximal flow. The cholangiogram catheter was removed and 2 hemolock clips were placed on the cystic duct stump prior to transecting it. The gallbladder was then dissected free from the liver bed using electrocautery. There was no stone spillage. The gallbladder was released and placed immediately in the retrieval bag. The right upper quadrant was irrigated and aspirated free of excess fluid. Hemostasis was intact with electrocautery. The gallbladder was exited at the umbilicus. The pneumoperitoneum was deflated through an antiviral valve. The fascia at the umbilicus approximated running 0 Vicryl. Skin edges approximated with interrupted subdermal 4-0 Monocryl. Steri-Strips Telfa and OpSite dressings applied. Sponge and instrument and needle counts were reported to the surgeon to be correct. Specimen gallbladder. Drains none. Blood loss minimal. Brant Graves M.D., F.A.C.S. Surgeon: Brant Graves Type of Anesthesia: General and Local Anesthesiologist: Destin Toney
== END 2020-11-09 16:15 | disposition home or self-care (01) ==
LOC: SDC 09:58 → AC 09:58
PROVIDERS: PCP Student in an Organized Health Care Education/Training Program; Referring Provider Surgery; Visit Provider Surgery
PROC: (CPT 47610; principal; 2020-11-09 11:55)
DX: K80.10 Calculus of gallbladder with chronic cholecystitis without obstruction (principal); M19.90 Unspecified osteoarthritis, unspecified site; K21.9 Gastro-esophageal reflux disease without esophagitis; M79.7 Fibromyalgia; H81.09 Meniere's disease, unspecified ear; Z79.899 Other long term (current) drug therapy
CPT/HCPCS: 00790; 47563; 36415; 74300; 76000; 80048; 85027; 87426; 88304; 93005; C9803; J7120; J2405

== ENCOUNTER → 2022-05-07 | Outpatient (CLI) | payer MEDICARE, OTHER, SELFPAY ==
--- NOTE | 2022-05-07 13:42 | CT_ITS ---
STUDY: CT SOFT TISSUE NECK WITHOUT CONTRAST REASON FOR EXAM: Female, 72 years old. EVAL RADIATION DOSAGE (If Supplied By Facility): CTDIvol = ( 18.02 ) mGy, DLP = ( 450.24 ) mGycm TECHNIQUE: The patient was scanned in a multi-detector CT scanner. High resolution transaxial imaging was performed without the administration of intravenous contrast material. Sagittal and coronal images were reconstructed. Individualized dose optimization techniques were used for this CT. COMPARISON: None. FINDINGS: Normal bilateral parotid glands. Normal bilateral cardiac nurse spaces. Normal bilateral parapharyngeal spaces. Normal bilateral carotid spaces. Normal bilateral sublingual and submandibular glands and spaces. Normal visualized nasopharynx. Normal retropharyngeal space. Normal perivertebral space. Normal visualized bilateral faucial tonsils. The visualized tongue, tongue base and oropharynx are normal. The visualized cervical lymph nodes (levels I-) are within normal size limits, and maintain normal morphology. There is no demonstrated solid or cystic mass lesion. Normal epiglottis, bilateral vallecula and hypopharynx. The pre-epiglottic and paraglottic adipose spaces are normal. Normal visualized bilateral piriform sinuses, aryepiglottic folds, vocal cords, and arytenoid-cricoid articulations. Normal subglottic trachea. Normal bilateral lobes of the thyroid gland. Normal visualized pulmonary apices. Normal visualized paranasal sinuses. There is multilevel degenerative changes of the cervical spine. CT/Soft Tissue Neck without Contr IMPRESSION: Normal unenhanced CT examination of the soft tissues of the neck. Electronically Signed: Zack Reyna MD at 21:32 EST ,
== END | disposition home or self-care (01) ==
PROVIDERS: PCP Student in an Organized Health Care Education/Training Program; Referring Provider Otolaryngology; Visit Provider Otolaryngology
DX: M47.812 Spondylosis without myelopathy or radiculopathy, cervical region (principal); K11.20 Sialoadenitis, unspecified
CPT/HCPCS: 70490